=== PATIENT | female | born 1945 | race Caucasian/White ===

== ENCOUNTER 2020-10-04 16:00 | Inpatient (IN) | payer MEDICARE ==
[2020-10-04] MEDS ORDERED: IPRATROPIUM/ALBUTEROL 0.5-2.5 MG/3 ML AMPUL NEB ONE (16:35)
[2020-10-04] MEDS ORDERED: METHYLPREDNISOLONE INJ 125 MG/2 ML SDV IV ONE (16:35)
[2020-10-04] MEDS ORDERED: DIPH/PERTUSS(ACELL)/TETANUS VAC/PF 0.5 ML SYR (>=10YO) IM ONE (16:35)
--- NOTE | 2020-10-04 16:37 | ER Document Report ---
ED Medical Screen (RME) - General Chief Complaint: Chest Pain Stated Complaint: FALL/LACERATION TO HEAD Time Seen by Provider: 10/04/20 16:29 Primary Care Provider: SAM RUVALCABA [Primary Care Provider] - Follow up as needed Notes: HPI: History is obtained from the patient and the daughter. A 74-year-old female with COPD history brought for 2 reasons today. Patient has been having worsened shortness of breath that she feels is her COPD along with chest pain over the last 2 weeks. Daughter indicates patient has had cough and cold symptoms for 3 to 4 weeks. Patient states she had a negative Covid test a week ago. Patient follows at [facility]. Patient states that she had a fall last night and another fall today. Patient states she was try to get back to her bed because she did not feel well and must have passed out. Patient does not recall her last tetanus shot. Patient believes she fell and hit the back of her head. She complains of pain to the lower thoracic spine as well as the neck and head PHYSICAL EXAMINATION: Hematoma with abrasion to the right occipital region of the scalp. Lung sounds are decreased bilaterally. Regular rate and rhythm. Patient does become dyspneic with speaking. I have greeted and performed a rapid initial assessment of this patient. A comprehensive ED assessment and evaluation of the patient, analysis of test results and completion of medical decision making process will be conducted by an additional ED providers. Please note that clinical decision making for this patient was made during the 2019 pandemic of novel coronavirus which caused a significant strain on the healthcare system including at this particular facility. Criteria for admission discharge and level of care decisions as well as treatment decisions have necessarily changed - Related Data Allergies/Adverse Reactions: No Known Allergies Allergy (Unverified 10/04/20 16:27) Home Medications: patient states she does not know the names of the medications Past Medical History - Social History Chew tobacco use (# tins/day): No Frequency of alcohol use: None Drug Abuse: None Physical Exam - Vital signs Vitals: Temp Pulse Resp BP Pulse Ox 97.8 F 73 18 145/67 H 98 10/04/20 16:11 10/04/20 16:11 10/04/20 16:11 10/04/20 16:11 10/04/20 16:11 Course - Vital Signs Vital signs: Temp Pulse Resp BP Pulse Ox 97.8 F 73 18 145/67 H 98 10/04/20 16:11 10/04/20 16:11 10/04/20 16:11 10/04/20 16:11 10/04/20 16:11 Doctor's Discharge - Discharge Referrals: LOCALMD,NO [Primary Care Provider] - Follow up as needed
--- NOTE | 2020-10-04 17:25 | RADIOLOGY REPORT (SQ) ---
EXAM DESCRIPTION: CT CERVICAL SPINE WITHOUT IMAGES COMPLETED DATE/TIME: 10/04/2020 5:08 pm REASON FOR STUDY: fall COMPARISON: None. TECHNIQUE: Axial images acquired through the cervical spine without intravenous contrast. Images re viewed with lung, soft tissue and bone windows. Reconstructed coronal and sagittal MPR images review ed. Images stored on PACS. All CT scanners at this facility use dose modulation, iterative reconstruction, and/or weight based d osing when appropriate to reduce radiation dose to as low as reasonably achievable (ALARA). [facility]: Dose Right [facility]: CareDose [facility]: Dose Right [facility]: Teradose 4D [facility]: Smart [employer] RADIATION DOSE: CT Rad equipment meets quality standard of care and radiation dose reduction techniq ues were employed. CTDIvol: 10.8 mGy. DLP: 171 mGy-cm. mGy. LIMITATIONS: None. FINDINGS: ALIGNMENT: Grade 1 anterolisthesis of C4 relative to C5 on the basis of degenerative peoples e. Reversal of the normal lordotic curvature centered at the C6 level. MINERALIZATION: Osteopenia. VERTEBRAL BODIES: No fractures or dislocation. DISCS: Multilevel disc space narrowing with osteophytes. FACETS, LATERAL MASSES, POSTERIOR ELEMENTS: Facet arthropathy. No fractures. No dislocation. No ac patrick findings. HARDWARE: None in the spine. VISUALIZED RIBS: No fractures. LUNG APICES AND SOFT TISSUES: Biapical pleural/ parenchymal scarring. No pneumothorax. OTHER: No other significant finding. IMPRESSION: Grade 1 anterolisthesis at the C4/5 level on the basis of disc degeneration and marked f acet arthropathy. No evidence of acute osseous injury. Background of multilevel spondylotic changes . TECHNICAL DOCUMENTATION: JOB ID: [id number] Quality ID # [id number]: Final reports with documentation of one or more dose reduction techniques (e.g., Au tomated exposure control, adjustment of the mA and/or kV according to patient size, use of iterative reconstruction technique) 2010 [employer]- All Rights Reserved Reading location - IP/workstation name: [email or web address]
--- NOTE | 2020-10-04 17:26 | RADIOLOGY REPORT (SQ) ---
EXAM DESCRIPTION: CT HEAD WITHOUT IMAGES COMPLETED DATE/TIME: 10/04/2020 2:08 pm REASON FOR STUDY: fall COMPARISON: None. TECHNIQUE: Axial images acquired through the brain without intravenous contrast. Images reviewed wi th bone, brain and subdural windows. Additional sagittal and coronal reconstructions were generated. Images stored on PACS. All CT scanners at this facility use dose modulation, iterative reconstruction, and/or weight based d osing when appropriate to reduce radiation dose to as low as reasonably achievable (ALARA). [facility]: Dose Right [facility]: CareDose [facility]: Dose Right [facility]: Teradose 4D [facility]: Smart [employer] RADIATION DOSE: CT Rad equipment meets quality standard of care and radiation dose reduction techniq ues were employed. CTDIvol: 53.2 mGy. DLP: 911 mGy-cm.mGy. LIMITATIONS: None. FINDINGS: VENTRICLES: Within normal limits. CEREBRUM: No masses. No hemorrhage. No midline shift. Areas of low density in the white matter mos t likely due to chronic micro-vascular ischemic change. No evidence for acute infarction. CEREBELLUM: No masses. No hemorrhage. No alteration of density. No evidence for acute infarction. EXTRAAXIAL SPACES: Age-related involutional change. No fluid collections. No masses. ORBITS AND GLOBE: No intra- or extraconal masses. Normal contour of globe without masses. CALVARIUM: No fracture. PARANASAL SINUSES: Opacification of the left maxillary sinus. Mild mucosal thickening right maxillar y sinus. SOFT TISSUES: No mass or hematoma. OTHER: No other significant finding. IMPRESSION: 1. No acute intracranial abnormality identified on noncontrast CT. Background chronic small vessel ischemic changes could degrade evaluation for changes of acute ischemia. If there is pe rsistent concern for acute ischemia, MRI would be recommended. 2. Chronic appearing opacification of the left maxillary sinus. EVIDENCE OF ACUTE STROKE: NO. TECHNICAL DOCUMENTATION: JOB ID: [id number] Quality ID # [id number]: Final reports with documentation of one or more dose reduction techniques (e.g., Au tomated exposure control, adjustment of the mA and/or kV according to patient size, use of iterative reconstruction technique) 2010 [employer]- All Rights Reserved Reading location - IP/workstation name: [email or web address]
--- NOTE | 2020-10-04 17:27 | RADIOLOGY REPORT (SQ) ---
EXAM DESCRIPTION: CHEST SINGLE VIEW IMAGES COMPLETED DATE/TIME: 10/04/2020 2:12 pm REASON FOR STUDY: sob COMPARISON: None. EXAM PARAMETERS: NUMBER OF VIEWS: One view. TECHNIQUE: Single frontal radiographic view of the chest acquired. RADIATION DOSE: NA LIMITATIONS: None. FINDINGS: LUNGS AND PLEURA: Lungs are hyperinflated. No consolidation, pleural effusion, or pneumot horax. MEDIASTINUM AND HILAR STRUCTURES: No masses. Contour normal. HEART AND VASCULAR STRUCTURES: Heart normal in size. Normal vasculature. BONES: No acute findings. HARDWARE: None in the chest. OTHER: No other significant finding. IMPRESSION: Findings suggestive of COPD. No acute radiographic abnormality. TECHNICAL DOCUMENTATION: JOB ID: [id number] 2010 [employer]- All Rights Reserved Reading location - IP/workstation name: [email or web address]
[2020-10-04 17:52] LABS: ABSOLUTE LYMPHOCYTES (AUTO) 1.1 10^3/uL (0.5-4.7); ABSOLUTE MONOCYTES (AUTO) 0.7 10^3/uL (0.1-1.4); BASOPHILS % (AUTO) 0.4 % (0-2); EOSINOPHILS % (AUTO) 0.3 % (0-6); HEMATOCRIT 35.9 % (36.0-47.0); HEMOGLOBIN 12.9 g/dL (12.0-15.5); LYMPHOCYTES % (AUTO) 11.4 % (13-45); MEAN CORPUSCULAR HEMOGLOBIN 31.1 pg (27.0-33.4); MEAN CORPUSCULAR VOLUME 86 fl (80-97); MONOCYTES % (AUTO) 6.7 % (3-13); PLATELET COUNT 310 10^3/uL (150-450); RED BLOOD COUNT 4.16 10^6/uL (3.72-5.28); RED CELL DISTRIBUTION WIDTH 13.4 % (11.5-14.0); SEGMENTED NEUTROPHILS % (AUTO) 81.2 % (42-78); TOTAL CELLS COUNTED % (AUTO) 100 %; WHITE BLOOD COUNT 9.8 10^3/uL (4.0-10.5)
[2020-10-04 18:03] LABS: ALBUMIN 4.6 g/dL (3.5-5.0); ALKALINE PHOSPHATASE 76 U/L (38-126); ASPARTATE AMINO TRANSFERASE 39 U/L (14-36); BILIRUBIN,DIRECT 0.1 mg/dL (0.0-0.4); BILIRUBIN,TOTAL 0.9 mg/dL (0.2-1.3); BLOOD UREA NITROGEN 15 mg/dL (7-20); CALCIUM 9.5 mg/dL (8.4-10.2); CARBON DIOXIDE 25 mmol/L (22-30); CHLORIDE 83 mmol/L (98-107); GLUCOSE 93 mg/dL (75-110); POTASSIUM 4.2 mmol/L (3.6-5.0); TOTAL PROTEIN 7.6 g/dL (6.3-8.2)
[2020-10-04 18:05] LABS: ANION GAP 10 (5-19)
[2020-10-04 18:11] LABS: NT PRO BNP 139 pg/mL (<125)
[2020-10-04 18:15] LABS: TROPONIN I < 0.012 ng/mL
[2020-10-04] MEDS ORDERED: NORMAL SALINE 1000 ML 1,000 ML IV ONE (19:25)
[2020-10-04] MEDS ORDERED: ONDANSETRON HCL INJ/PF 4 MG/2 ML SDV IV ONE (19:33)
[2020-10-04] MEDS ORDERED: MORPHINE SULFATE 10 MG/ML INJ IV ONE (19:33)
--- NOTE | 2020-10-04 19:38 | ER Document Report ---
ED General - General Chief Complaint: Chest Pain Stated Complaint: FALL/LACERATION TO HEAD Time Seen by Provider: 10/04/20 16:29 - HPI Notes: Patient is a 74-year-old female presents emergency department for evaluation of multiple issues. She states that she has felt some shortness of breath and just has felt weak over the last 2 weeks. She has felt dizzy. She has had syncopal episodes x2, the last one being this morning. She states she was only out for a few seconds. She did hit her head. She is unsure when her last tetanus shot was. She has had some minor pain in her chest that she describes as a soreness, also states she is had some soreness in her back. No fevers. She had a minimal cough today. She did have a negative Covid test recently. She denies any difficulty seeing, speaking, swallowing. She is moving her arms and legs without difficulty. She has had some nausea, but denies vomiting. Normal bowel movements. She states like she is not urinating as much as normal. - Related Data Allergies/Adverse Reactions: No Known Allergies Allergy (Unverified 10/04/20 16:27) Home Medications: Statin, lisinopril/HCTZ Past Medical History - General Information source: Patient - Social History Smoking Status: Former Smoker Chew tobacco use (# tins/day): No Frequency of alcohol use: None Drug Abuse: None Family History: Reviewed & Not Pertinent - Past Medical History Cardiac Medical History: Reports: Hx Hypercholesterolemia, Hx Hypertension Pulmonary Medical History: Reports: Hx COPD EENT Medical History: Reports: Eyes - History of cataracts Past Surgical History: Reports: Hx Cholecystectomy, Hx Tubal Ligation, Other - Cataract surgery Review of Systems - Review of Systems Constitutional: See HPI EENT: No symptoms reported Cardiovascular: See HPI Respiratory: See HPI Gastrointestinal: See HPI Genitourinary: See HPI Musculoskeletal: See HPI Skin: No symptoms reported Neurological/Psychological: See HPI Physical Exam - Vital signs Vitals: Temp Pulse Resp BP Pulse Ox 97.8 F 73 18 145/67 H 98 10/04/20 16:11 10/04/20 16:11 10/04/20 16:11 10/04/20 16:11 10/04/20 16:11 - Notes Notes: This is a 74-year-old female who appears her stated age, no acute distress. She does not appear frankly dyspneic, just weak. It seems to take all of her effort to be able to speak to me. Vital signs reviewed, please refer to chart. Head is normocephalic. Left occipital hematoma noted with a small abrasion, no signi ficant laceration. Patient also has ecchymosis over the lateral aspect of the left brow. No orbital step-off. Pupils equal round, reactive to light. Neck is supple without meningismus. Heart is regular rate and rhythm. Lungs are clear to auscultation bilaterally. Abdomen is soft, nontender, normoactive bowel sounds throughout. Extremities without cyanosis, clubbing. Posterior calves are nontender. Peripheral pulses are equal. Skin is warm and dry. Patient is awake, alert, oriented x3, but she is slow to answer questions. Cranial nerves II - XII are grossly intact without focal neurological deficits. Strength is plus 5 out of 5 bilateral upper and lower extremities. Sensation is intact. Reflexes symmetrical. Intact [id number], rapid alternating movements, [id number]. Course - Re-evaluation Re-evalutation: 10/04/20 19:40 Patient presents emergency department for evaluation. She laboratory vesic ation's, imaging, EKG is ordered through triage. She was also given treatment for a COPD exacerbation as a possible etiology of her shortness of breath. The patient has absolutely no wheezing here and she is oxygenating well. Her findings include a significantly low sodium. I do not have any old studies to compare this to, but she has no history of hyponatremia to her knowledge. Certainly to this level it needs addressed on the inpatient basis. I suspect that is the etiology of her symptoms. I am still awaiting a urinalysis. She is currently stable, we will continue to monitor. 10/04/20 21:[address] Sosa, operating room registered nurse for the hospital this evening. He asks that I run this by the ICU provider, given the significance of the hyponatremia. I did call the ICU, they do have a critical patient at this time. Patient is currently stable. - Vital Signs Vital signs: Temp Pulse Resp BP Pulse Ox 97.8 F 73 17 142/61 H 100 10/04/20 16:11 10/04/20 16:11 10/04/20 21:01 10/04/20 21:01 10/04/20 21:01 - Laboratory Results Result Diagrams: 10/04/20 17:36 10/04/20 17:36 Laboratory Results Interpreted: 10/04/20 10/04/20 10/04/20 17:36 17:36 17:36 Hct 35.9 L Lymph % (Auto) 11.4 L Seg Neutrophils % 81.2 H Sodium 117.8 L* Chloride 83 L Est GFR ( Amer) 56 L Est GFR (MDRD) Non-Af 46 L AST 39 H NT-Pro-B Natriuret Pep 139 H Urine Ketones 10/04/20 20:26 Hct Lymph % (Auto) Seg Neutrophils % Sodium Chloride Est GFR ( Amer) Est GFR (MDRD) Non-Af AST NT-Pro-B Natriuret Pep Urine Ketones 20 H Critical Laboratory Results Reviewed: Yes Attending or Supervising Physician who Reviewed Labs: GINI LANCE - Radiology Results Radiology Results Interpreted: 10/04/20 19:[address] 10/04/20 16:34 IMPRESSION: Grade 1 anterolisthesis at the C4/5 level on the basis of disc degeneration and marked facet arthropathy. No evidence of acute osseous injury. Background of multilevel spondylotic changes. Head CT 10/04/20 16:34 IMPRESSION: 1. No acute intracranial abnormality identified on noncontrast CT. Background chronic small vessel ischemic changes could degrade evaluation for changes of acute ischemia. If there is persistent concern for acute ischemia, MRI would be recommended. 2. Chronic appearing opacification of the left maxillary sinus. EVIDENCE OF ACUTE STROKE: NO. Chest X-Ray 10/04/20 16:35 IMPRESSION: Findings suggestive of COPD. No acute radiographic abnormality. Critical Radiology Results Reviewed: No Critical Results Discharge - Discharge Clinical Impression: Hyponatremia, Syncope and collapse Head injury without fracture of skull Qualifiers: Encounter type: initial encounter Qualified Code(s): S09.90XA - Unspecified injury of head, initial encounter Condition: Stable Disposition: ADMITTED INPATIENT [facility]
[2020-10-04 20:46] LABS: APPEARANCE,URINE CLEAR; BILIRUBIN,URINE NEGATIVE (NEGATIVE); COLOR,URINE STRAW; GLUCOSE, URINE NEGATIVE (NEGATIVE); KETONES,URINE 20 mg/dL (NEGATIVE); LEUKOCYTE ESTERASE,URINE NEGATIVE (NEGATIVE); NITRITE,URINE NEGATIVE (NEGATIVE); PROTEIN,URINE NEGATIVE (NEGATIVE); URINE SPECIFIC GRAVITY 1.008; UROBILINOGEN,URINE NEGATIVE mg/dL (<2.0)
--- NOTE | 2020-10-04 21:28 | Progress Note ---
Provider Note Provider Note: Called by Dr. Lozano to evalaute patient for possible ICU admission. I evalauted this patient in the ED. She states she has a past medical history to include COPD former smoker quit approx 15 years ago. She states she is normally healthy but has been having problems since August with feelings of SOB intermittently and chest pain which she contributes to a fall she had. The patient did have another fall, however, her CT scan of head and neck are negative. The patients sodium is noted to be 117, however; she is alert and oriented at this time and I do not feel ICU admission is required at this time.
[2020-10-04] MEDS ORDERED: IPRATROPIUM/ALBUTEROL 0.5-2.5 MG/3 ML AMPUL NEB PRN (22:30)
[2020-10-04] MEDS ORDERED: ACETAMINOPHEN 325 MG TABLET PO PRN (22:30)
[2020-10-04] MEDS ORDERED: RINGERS SOLUTION,LACTATED 1,000 ML IV PRN (22:30)
[2020-10-04] MEDS ORDERED: ONDANSETRON HCL INJ/PF 4 MG/2 ML SDV IV PRN (22:49)
--- NOTE | 2020-10-04 22:54 | PDOC H&P ---
History of Present Illness Admission Date/PCP: JOSE BURNHAM PA-C Patient complains of: Fall, chest pain History of Present Illness: BRAIN SCHULER is a 74 year old female with a history of hypertension and COPD who presents to the ED after she sustained a fall 1 day prior to presentation. She states that she fell down while she was trying to go to the b athroom. During the incident she hit her head and she thinks that she might have blacked out for few minutes but does not remember exactly for how long. Patient had similar episodes about 2 weeks back. He denied any shortness of breath, dizziness chest pain or palpitation prior to or during the fall. Currently he reports constant nonspecific bilateral chest pain with no clear aggravating or relieving factor. Patient also reports that this she has been feeling generally weak for the past 2 weeks and has generalized body pain fatigue lower back and multiple joints. Patient is alert and oriented x3 but at times appears to be confused. He denies any nausea, vomiting, fever, chills, cough, diarrhea, abnormal body movement. She reports some numbness on the left lower extremity but denies any weakness of extremities. At the ED patient was hemodynamically stable labs showed hyponatremia of [address] without contrast was negative, cervical spine CT showed grade 1 anterolisthesis at C4/C5 level. X-ray showed hyperinflated lungs consistent with COPD but no acute changes were noted. Past Medical History Cardiac Medical History: Reports: Hyperlipidema, Hypertension Pulmonary Medical History: Reports: Chronic Obstructive Pulmonary Disease (COPD) EENT Medical History: Reports: Eyes - History of cataracts Past Surgical History Past Surgical History: Reports: Cholecystectomy, Tubal Ligation, Other - Cataract surgery Social History Information Source: Patient Lives with: Alone Smoking Status: Former Smoker Electronic Cigarette use?: No Hx Recreational Drug Use: No Drugs: None - Advance Directive Resuscitation Status: Full Code Family History Family History: Reviewed & Not Pertinent Parental Family History Reviewed: Yes Children Family History Reviewed: Yes Sibling(s) Family History Reviewed.: Yes Medication/Allergy Allergies/Adverse Reactions: No Known Allergies Allergy (Unverified 10/04/20 16:27) Review of Systems Constitutional: PRESENT: as per HPI Eyes: ABSENT: visual disturbances Ears: ABSENT: hearing changes Nose, Mouth, and Throat: ABSENT: headache(s), mouth pain, sore throat Cardiovascular: PRESENT: chest pain. ABSENT: dyspnea on exertion, edema, orthropnea, palpitations Respiratory: ABSENT: cough, hemoptysis Gastrointestinal: ABSENT: abdominal pain, constipation, diarrhea, hematemesis, hematochezia, nausea, vomiting Genitourinary: ABSENT: dysuria, hematuria Musculoskeletal: PRESENT: back pain, muscle weakness. ABSENT: joint swelling Integumentary: ABSENT: rash, wounds Neurological: PRESENT: as per HPI, confusion, syncope. ABSENT: focal weakness Psychiatric: ABSENT: anxiety, depression, homidical ideation, suicidal ideation Endocrine: ABSENT: cold intolerance, heat intolerance, polydipsia, polyuria Hematologic/Lymphatic: ABSENT: easy bleeding, easy bruising Physical Exam Vital Signs: Temp Pulse Resp BP Pulse Ox 97.8 F 73 17 142/61 H 100 10/04/20 16:11 10/04/20 16:11 10/04/20 21:01 10/04/20 21:01 10/04/20 21:01 Intake & Output 10/03/20 10/04/20 10/05/20 06:59 06:59 06:59 Intake Total 1000 Balance 1000 Weight 57.6 kg Additional comments: GENERAL APPEARANCE: Alert and oriented x3 appears to be confused at times, in no acute distress HEENT: Has a 3 cm linear superficial laceration around occipital area. No scleral icterus. Dry oral mucosa NECK: Supple. No lymphadenopathy or tenderness. No carotid bruit. No JVD CHEST: Symmetric. Nontender to palpation. LUNGS: Clear with good air entry bilaterally. No wheezing or crackles HEART: Regular rate and rhythm with normal S1 and S2. No murmurs, gallops, or rubs. ABDOMEN: soft, active bowel sounds, no direct or rebound tenderness. No organomegaly detected. No CVA tenderness EXTREMITIES: No cyanosis, clubbing, or edema. MUSCULOSKELETAL: No deformity, atrophy or swelling noted. No point tenderness was appreciated on cervical, thoracic or lumbar vertebra areas SKIN: Warm, dry, and well perfused. No lesions or rashes are noted. NEUROLOGIC: No focal sensory or motor deficits are noted. Results Laboratory Results: 10/04/20 17:36 10/04/20 17:36 10/04/20 10/04/20 10/04/20 17:36 17:36 20:26 WBC 9.8 RBC 4.16 Hgb 12.9 Hct 35.9 L MCV 86 MCH 31.1 MCHC 36.0 RDW 13.4 Plt Count 310 Seg Neutrophils % 81.2 H Sodium 117.8 L* Potassium 4.2 Chloride 83 L Carbon Dioxide 25 Anion Gap 10 BUN 15 Creatinine 1.15 Est GFR ( Amer) 56 L Glucose 93 Calcium 9.5 Total Bilirubin 0.9 AST 39 H Alkaline Phosphatase 76 Total Protein 7.6 Albumin 4.6 Urine Color STRAW Urine Appearance CLEAR Urine pH 7.0 Ur Specific [place] 1.008 Urine Protein NEGATIVE Urine Glucose (UA) NEGATIVE Urine Ketones 20 H Urine Blood NEGATIVE Urine Nitrite NEGATIVE Ur Leukocyte Esterase NEGATIVE Urine WBC (Auto) 1 Urine RBC (Auto) 2 10/04/20 17:36 Troponin I < 0.012 NT-Pro-B Natriuret Pep 139 H Impressions: Cervical Spine CT 10/04/20 16:34 IMPRESSION: Grade 1 anterolisthesis at the C4/5 level on the basis of disc degeneration and marked facet arthropathy. No evidence of acute osseous injury. Background of multilevel spondylotic changes. Head CT 10/04/20 16:34 IMPRESSION: 1. No acute intracranial abnormality identified on noncontrast CT. Background chronic small vessel ischemic changes could degrade evaluation for changes of acute ischemia. If there is persistent concern for acute ischemia, MRI would be recommended. 2. Chronic appearing opacification of the left maxillary sinus. EVIDENCE OF ACUTE STROKE: NO. Chest X-Ray 10/04/20 16:35 IMPRESSION: Findings suggestive of COPD. No acute radiographic abnormality. Assessment and Plan - Diagnosis (1) Hyponatremia Is this a current diagnosis for this admission?: Yes Plan: Likely hypovolemic hyponatremia from poor oral intake Possibly contributing to spells of confusion Serum sodium level was 117.8 Placed patient on fall precaution, seizure precaution Obtain serum, urine osmolality and urine sodium Patient was given a liter of normal saline at the ED Continue cautious hydration with LR at 100 mL's per hour With a target of correction of sodium levels by 6 mEq in the first 24 hours Continue monitoring serum electrolytes (2) Atypical chest pain Is this a current diagnosis for this admission?: Yes Plan: Currently patient reports nonexertional, constant chest pain Initial cardiac enzyme was negative EKG showed no ST-T wave changes consistent with ischemia Continue trending cardiac enzymes Continue monitoring on telemetry Placed her on aspirin and statin (3) Head injury without fracture of skull Qualifiers: Encounter type: initial encounter Qualified Code(s): S09.90XA - Unspecified injury of head, initial encounter Is this a current diagnosis for this admission?: Yes Plan: Patient sustained head injury during an episode of fall Physical exam was significant for a 3 cm linear laceration around the occipital area CT head without contrast showed no skull fracture or acute intracranial findings Continue wound care, fall precaution (4) Syncope and collapse Is this a current diagnosis for this admission?: Yes Plan: Patient presents after an episode of syncope with fall and head injury CT head without contrast was negative for skull fracture or any acute intracranial abnormality Likely orthostatic due to volume depletion Continue IV hydration Continue monitoring on telemetry consider echocardiogram On fall precaution (5) Volume depletion Is this a current diagnosis for this admission?: Yes Plan: Likely due to poor oral intake Continue gentle IV hydration to avoid overcorrection of hyponatremia Closely monitor vital signs (6) COPD (chronic obstructive pulmonary disease) Is this a current diagnosis for this admission?: Yes Plan: Currently not in acute exacerbation Continue present treatment with DuoNeb's every 4 hourly as needed (7) Hypertension Is this a current diagnosis for this admission?: Yes Plan: Blood pressure within acceptable range Hold off on antihypertensives medication for now due to volume depletion - Time Time Spent with patient: 35 or more minutes Total Critical Time (Minutes): 45 Medications reviewed and adjusted accordingly: Yes Anticipated Discharge Disposition: Home, Self Care Anticipated Discharge Timeframe: within 72 hours - Inpatient Certification Based on my medical assessment, after consideration of the patient's comorbidities, presenting symptoms, or acuity I expect that the services needed warrant INPATIENT care.: Yes I certify that my determination is in accordance with my understanding of Medicare's requirements for reasonable and necessary INPATIENT services [42 CFR 412.3e].: Yes Medical Necessity: Significant Comorbidiites Make Outpatient Treatment Too Risky, Need Close Monitoring Due to Risk of Patient Decompensation, Need For IV Fluids, Need For Continuous Telemetry Monitoring, Risk of Complication if Not Cared For in Hospital Post Hospital Care: D/C or Transfer Summary
[2020-10-04] MEDS ORDERED: FAMOTIDINE 20 MG TABLET PO ONE (23:00)
[2020-10-04] MEDS: OXYCODONE-ACETAMINOPHEN 5-325 MG TABLET PO PRN (23:35)
[2020-10-05] MEDS: OXYCODONE-ACETAMINOPHEN 5-325 MG TABLET PO PRN (06:10)
[2020-10-05 06:42] LABS: ABSOLUTE LYMPHOCYTES (AUTO) 0.6 10^3/uL (0.5-4.7); ABSOLUTE MONOCYTES (AUTO) 0.4 10^3/uL (0.1-1.4); ABSOLUTE NEUT (AUTO) 4.6 10^3/uL (1.7-8.2); BASOPHILS % (AUTO) 0.3 % (0-2); EOSINOPHILS % (AUTO) 0.1 % (0-6); HEMATOCRIT 29.9 % (36.0-47.0); HEMOGLOBIN 10.9 g/dL (12.0-15.5); LYMPHOCYTES % (AUTO) 10.8 % (13-45); MEAN CORPUSCULAR HEMOGLOBIN 31.7 pg (27.0-33.4); MEAN CORPUSCULAR HGB CONC 36.4 g/dL (32.0-36.0); MEAN CORPUSCULAR VOLUME 87 fl (80-97); MONOCYTES % (AUTO) 6.3 % (3-13); PLATELET COUNT 270 10^3/uL (150-450); RED BLOOD COUNT 3.45 10^6/uL (3.72-5.28); RED CELL DISTRIBUTION WIDTH 13.2 % (11.5-14.0); SEGMENTED NEUTROPHILS % (AUTO) 82.5 % (42-78); TOTAL CELLS COUNTED % (AUTO) 100 %; WHITE BLOOD COUNT 5.6 10^3/uL (4.0-10.5)
[2020-10-05 07:14] LABS: ANION GAP 10 (5-19); BLOOD UREA NITROGEN 11 mg/dL (7-20); CALCIUM 8.7 mg/dL (8.4-10.2); CARBON DIOXIDE 22 mmol/L (22-30); CHLORIDE 93 mmol/L (98-107); GLUCOSE 139 mg/dL (75-110); POTASSIUM 4.3 mmol/L (3.6-5.0)
[2020-10-05] MEDS ORDERED: RINGERS SOLUTION,LACTATED 1,000 ML IV PRN (07:29)
--- NOTE | 2020-10-05 12:07 | PDOC PROGRESS REPORT ---
Subjective Date:: 10/05/20 Subjective:: As per admitting physician's note BRAIN SCHULER is a 74 year old female with a history of hypertension and COPD who presents to the ED after she sustained a fall 1 day prior to presentation. She states that she fell down while she was trying to go to the bathroom. During the incident she hit her head and she thinks that she might have blacked out for few minutes but does not remember exactly for how long. Patient had similar episodes about 2 weeks back. He denied any shortness of breath, dizziness chest pain or palpitation prior to or during the fall. Currently he reports constant nonspecific bilateral chest pain with no clear aggravating or relieving factor. Patient also reports that this she has been feeling generally weak for the past 2 weeks and has generalized body pain fatigue lower back and multiple joints. Patient is alert and oriented x3 but at times appears to be confused. He denies any nausea, vomiting, fever, chills, cough, diarrhea, abnormal body movement. She reports some numbness on the left lower extremity but denies any weakness of extremities. At the ED patient was hemodynamically stable labs showed hyponatremia of [address] w ithout contrast was negative, cervical spine CT showed grade 1 anterolisthesis at C4/C5 level. X-ray showed hyperinflated lungs consistent with COPD but no acute changes were noted. 10/05/2020. Saw patient this morning, comfortably resting in bed, in no apparent distress, planing of neck pain, she is ambulatory and p.o. tolerant, denies any headache, numbness, tingling, focal weakness, chest pain, nausea, vomiting, diarrhea, constipation or any urinary symptoms. Patient denies taking any SSRIs but he states that she drinks excessive amount of water daily. Reason For Visit: SEVERE HYPONATREMIA,ACUTE METABOLIC ENCEPHALOPATHY Physical Exam Vital Signs: Temp Pulse Resp BP Pulse Ox 97.6 F 87 14 101/44 L 100 10/05/20 07:33 10/05/20 09:04 10/05/20 09:04 10/05/20 07:33 10/05/20 09:04 Intake & Output 10/04/20 10/05/20 10/06/20 06:59 06:59 06:59 Intake Total 1000 Balance 1000 Weight 59.6 kg General appearance: PRESENT: no acute distress, well-developed, well-nourished Head exam: PRESENT: atraumatic, normocephalic Respiratory exam: PRESENT: clear to auscultation katey. ABSENT: rales, rhonchi, wheezes Cardiovascular exam: PRESENT: RRR. ABSENT: diastolic murmur, rubs, systolic murmur GI/Abdominal exam: PRESENT: normal bowel sounds, soft. ABSENT: distended, guarding, mass, organolmegaly, rebound, tenderness Extremities exam: PRESENT: full ROM. ABSENT: calf tenderness, clubbing, pedal edema Neurological exam: PRESENT: alert, awake, oriented to person, oriented to place, oriented to time, oriented to situation, CN II-XII grossly intact. ABSENT: motor sensory deficit Results Laboratory Results: 10/05/20 05:45 10/05/20 05:45 10/04/20 10/04/20 10/04/20 17:36 17:36 17:36 WBC 9.8 RBC 4.16 Hgb 12.9 Hct 35.9 L MCV 86 MCH 31.1 MCHC 36.0 RDW 13.4 Plt Count 310 Seg Neutrophils % 81.2 H Sodium 117.8 L* Potassium 4.2 Chloride 83 L Carbon Dioxide 25 Anion Gap 10 BUN 15 Creatinine 1.15 Est GFR ( Amer) 56 L Glucose 93 Serum Osmolality 249 L Calcium 9.5 Magnesium Total Bilirubin 0.9 AST 39 H Alkaline Phosphatase 76 Total Protein 7.6 Albumin 4.6 TSH Urine Color Urine Appearance Urine pH Ur Specific [place] Urine Protein Urine Glucose (UA) Urine Ketones Urine Blood Urine Nitrite Ur Leukocyte Esterase Urine WBC (Auto) Urine RBC (Auto) Urine Osmolality 10/04/20 10/04/20 10/05/20 20:26 20:26 05:45 WBC 5.6 RBC 3.45 L Hgb 10.9 L Hct 29.9 L MCV 87 MCH 31.7 MCHC 36.4 H RDW 13.2 Plt Count 270 Seg Neutrophils % 82.5 H Sodium Potassium Chloride Carbon Dioxide Anion Gap BUN Creatinine Est GFR ( Amer) Glucose Serum Osmolality Calcium Magnesium Total Bilirubin AST Alkaline Phosphatase Total Protein Albumin TSH Urine Color STRAW Urine Appearance CLEAR Urine pH 7.0 Ur Specific [place] 1.008 Urine Protein NEGATIVE Urine Glucose (UA) NEGATIVE Urine Ketones 20 H Urine Blood NEGATIVE Urine Nitrite NEGATIVE Ur Leukocyte Esterase NEGATIVE Urine WBC (Auto) 1 Urine RBC (Auto) 2 Urine Osmolality 235 L 10/05/20 10/05/20 05:45 05:45 WBC RBC Hgb Hct MCV MCH MCHC RDW Plt Count Seg Neutrophils % Sodium 124.7 L Potassium 4.3 Chloride 93 L Carbon Dioxide 22 Anion Gap 10 BUN 11 Creatinine 0.86 Est GFR ( Amer) > 60 Glucose 139 H Serum Osmolality Calcium 8.7 Magnesium 1.8 Total Bilirubin AST Alkaline Phosphatase Total Protein Albumin TSH 0.32 L Urine Color Urine Appearance Urine pH Ur Specific [place] Urine Protein Urine Glucose (UA) Urine Ketones Urine Blood Urine Nitrite Ur Leukocyte Esterase Urine WBC (Auto) Urine RBC (Auto) Urine Osmolality 10/04/20 10/04/20 10/05/20 17:36 23:32 05:45 Troponin I < 0.012 < 0.012 < 0.012 NT-Pro-B Natriuret Pep 139 H Impressions: Cervical Spine CT 10/04/20 16:34 IMPRESSION: Grade 1 anterolisthesis at the C4/5 level on the basis of disc degeneration and marked facet arthropathy. No evidence of acute osseous injury. Background of multilevel spondylotic changes. Head CT 10/04/20 16:34 IMPRESSION: 1. No acute intracranial abnormality identified on noncontrast CT. Background chronic small vessel ischemic changes could degrade evaluation for changes of acute ischemia. If there is persistent concern for acute ischemia, MRI would be recommended. 2. Chronic appearing opacification of the left maxillary sinus. EVIDENCE OF ACUTE STROKE: NO. Chest X-Ray 10/04/20 16:35 IMPRESSION: Findings suggestive of COPD. No acute radiographic abnormality. Assessment and Plan - Diagnosis (1) Hyponatremia Is this a current diagnosis for this admission?: Yes Plan: Improving. 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 Patient reports drinking excessive amount of water daily. Normal urine sodium, low serum osmolarity and low urine osmolarity. Denies any history of malignancy, denies any history of tobacco abuse, not taking any SSRIs or antiepileptics. Presented with sodium of 117. Currently sodium is 124. DC IV fluids. Fluid restriction. BMP every 8 hours. Implement seizure and fall precautions. (2) Syncope and collapse Is this a current diagnosis for this admission?: Yes Plan: Patient presents after an episode of syncope with fall and head injury CT head without contrast was negative for skull fracture or any acute intracranial abnormality Likely orthostatic due to volume depletion Continue IV hydration Continue monitoring on telemetry consider echocardiogram On fall precaution (3) COPD (chronic obstructive pulmonary disease) Is this a current diagnosis for this admission?: Yes Plan: Currently not in acute exacerbation Continue present treatment with DuoNeb's every 4 hourly as needed (4) Head injury without fracture of skull Qualifiers: Encounter type: initial encounter Qualified Code(s): S09.90XA - Unspecified injury of head, initial encounter Is this a current diagnosis for this admission?: Yes Plan: Patient sustained head injury during an episode of fall Physical exam was significant for a 3 cm linear laceration around the occipital area CT head without contrast showed no skull fracture or acute intracranial findings Continue wound care, fall precaution (5) Hypertension Is this a current diagnosis for this admission?: Yes Plan: Euvolemic. Normotensive. Home medications are lisinopril and HCTZ. DC HCTZ due to electrolyte abnormalities. Resume lisinopril adjust dosage as needed. Outpatient PCP follow-up. (6) Atypical chest pain Is this a current diagnosis for this admission?: Yes Plan: Resolved. Denies any history of CAD. Likely musculoskeletal, does not appear to be cardiac. Troponins negative x3. EKG no acute changes. Continue monitoring on telemetry, aspirin and statins optimize BP. - Time Time Spent with patient: 35 or more minutes Anticipated Discharge Disposition: Home, Self Care Anticipated Discharge Timeframe: within 24 hours
[2020-10-05] MEDS: ENOXAPARIN SODIUM INJ 40 MG/0.4 ML DISP.SYRIN SUBCUT SCH (12:21)
[2020-10-05] MEDS: ASPIRIN 81 MG TABLET, CHEWABLE PO SCH (12:21)
[2020-10-05] MEDS: FAMOTIDINE 20 MG TABLET PO SCH ×2 (12:22→21:25)
[2020-10-05 14:21] LABS: ANION GAP 10 (5-19); BLOOD UREA NITROGEN 10 mg/dL (7-20); CALCIUM 9.2 mg/dL (8.4-10.2); CARBON DIOXIDE 24 mmol/L (22-30); CHLORIDE 91 mmol/L (98-107); GLUCOSE 128 mg/dL (75-110); POTASSIUM 3.9 mmol/L (3.6-5.0)
--- NOTE | 2020-10-05 20:31 | EKG REPORT ---
SEVERITY:- NORMAL ECG - SINUS RHYTHM : Confirmed by: Teri Herndon MD 05-Oct-2020 20:30:40
[2020-10-05 21:41] LABS: ANION GAP 6 (5-19); BLOOD UREA NITROGEN 11 mg/dL (7-20); CALCIUM 8.6 mg/dL (8.4-10.2); CARBON DIOXIDE 27 mmol/L (22-30); CHLORIDE 93 mmol/L (98-107); GLUCOSE 101 mg/dL (75-110); POTASSIUM 3.8 mmol/L (3.6-5.0)
[2020-10-05] MEDS ORDERED: ATORVASTATIN CALCIUM 40 MG TABLET PO SCH (22:00)
[2020-10-06 07:09] LABS: ANION GAP 5 (5-19); BLOOD UREA NITROGEN 9 mg/dL (7-20); CALCIUM 8.7 mg/dL (8.4-10.2); CARBON DIOXIDE 25 mmol/L (22-30); CHLORIDE 99 mmol/L (98-107); GLUCOSE 89 mg/dL (75-110); POTASSIUM 4.2 mmol/L (3.6-5.0)
[2020-10-06] MEDS: FAMOTIDINE 20 MG TABLET PO SCH (09:21)
[2020-10-06] MEDS: ENOXAPARIN SODIUM INJ 40 MG/0.4 ML DISP.SYRIN SUBCUT SCH (09:21)
[2020-10-06] MEDS: ASPIRIN 81 MG TABLET, CHEWABLE PO SCH (09:21)
[2020-10-06] MEDS ORDERED: LISINOPRIL 10 MG TABLET PO SCH (10:00)
[2020-10-06 14:17] VITALS: BP 119/48
[2020-10-06 17:55] LABS: ANION GAP 6 (5-19); BLOOD UREA NITROGEN 9 mg/dL (7-20); CALCIUM 8.5 mg/dL (8.4-10.2); CARBON DIOXIDE 26 mmol/L (22-30); CHLORIDE 98 mmol/L (98-107); GLUCOSE 135 mg/dL (75-110); POTASSIUM 3.8 mmol/L (3.6-5.0)
[2020-10-06] MEDS ORDERED: SODIUM BICARBONATE 650 MG TABLET PO SCH (18:30)
--- NOTE | 2020-10-07 12:03 | Left Against Medical Advice ---
Against Medical Advice Admission Date/Time: 10/04/20 23:00 Primary Care Provider: JOSE BURNHAM PA-C Date of Patient Emigration: 10/06/20 - Diagnosis: (1) Hyponatremia Is this a current diagnosis for this admission?: Yes (2) Syncope and collapse Is this a current diagnosis for this admission?: Yes (3) COPD (chronic obstructive pulmonary disease) Is this a current diagnosis for this admission?: Yes (4) Head injury without fracture of skull Is this a current diagnosis for this admission?: Yes (5) Hypertension Is this a current diagnosis for this admission?: Yes (6) Atypical chest pain Is this a current diagnosis for this admission?: Yes - Summary: Summary: As per admitting physician's note BRAIN SCHULER is a 74 year old female with a history of hypertension and COPD who presents to the ED after she sustained a fall 1 day prior to presentation. She states that she fell down while she was trying to go to the bathroom. During the incident she hit her head and she thinks that she might have blacked out for few minutes but does not remember exactly for how long. Patient had similar episodes about 2 weeks back. He denied any shortness of breath, dizziness chest pain or palpitation prior to or during the fall. Currently he reports constant nonspecific bilateral chest pain with no clear aggravating or relieving factor. Patient also reports that this she has been feeling generally weak for the past 2 weeks and has generalized body pain fatigue lower back and multiple joints. Patient is alert and oriented x3 but at times appears to be confused. He denies any nausea, vomiting, fever, chills, cough, diarrhea, abnormal body movement. She reports some numbness on the left lower extremity but denies any weakness of extremities. At the ED patient was hemodynamically stable labs showed hyponatremia of [address] without contrast was negative, cervical spine CT showed grade 1 anterolisthesis at C4/C5 level. X-ray showed hyperinflated lungs consistent with COPD but no acute changes were noted. (1) Hyponatremia Much improved but unfortunately patient decided to leave AMA. 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 Patient reports drinking excessive amount of water daily. Normal urine sodium, low serum osmolarity and low urine osmolarity. Denies any history of malignancy, denies any history of tobacco abuse, not taking any SSRIs or antiepileptics. Presented with sodium of 117. Currently sodium is 124. DC IV fluids. Fluid restriction. BMP every 8 hours. Implement seizure and fall precautions. (2) Syncope and collapse Patient presents after an episode of syncope with fall and head injury CT head without contrast was negative for skull fracture or any acute intracranial abnormality Likely orthostatic due to volume depletion Continue IV hydration Continue monitoring on telemetry consider echocardiogram On fall precaution (3) COPD (chronic obstructive pulmonary disease) Currently not in acute exacerbation Continue present treatment with DuoNeb's every 4 hourly as needed (4) Head injury without fracture of skull Patient sustained head injury during an episode of fall Physical exam was significant for a 3 cm linear laceration around the occipital area CT head without contrast showed no skull fracture or acute intracranial findings Continue wound care, fall precaution (5) Hypertension Euvolemic. Normotensive. Home medications are lisinopril and HCTZ. DC HCTZ due to electrolyte abnormalities. Resume lisinopril adjust dosage as needed. Outpatient PCP follow-up. (6) Atypical chest pain Resolved. Denies any history of CAD. Likely musculoskeletal, does not appear to be cardiac. Troponins negative x3. EKG no acute changes. Continue monitoring on telemetry, aspirin and statins optimize BP.
== END 2020-10-06 18:54 | disposition left against medical advice (07) | DRG 641 ==
LOC: ER 16:00 → EH 23:00 → 3W 10-05 01:11
PROVIDERS: ADMIT Student in an Organized Health Care Education/Training Program; ATTEND Internal Medicine
PROC: 3E0234Z Introduction of Serum, Toxoid and Vaccine into Muscle, Percutaneous Approach (ICD-10-PCS; principal; 2020-10-04)
DX: E87.1 Hypo-osmolality and hyponatremia (principal); R55 Syncope and collapse; S09.90XA Unspecified injury of head, initial encounter; S00.212A Abrasion of left eyelid and periocular area, initial encounter; R07.89 Other chest pain; J44.9 Chronic obstructive pulmonary disease, unspecified; I10 Essential (primary) hypertension; W19.XXXA Unspecified fall, initial encounter; E78.5 Hyperlipidemia, unspecified; Y92.009 Unspecified place in unspecified non-institutional (private) residence as the place of occurrence of the external cause; Z87.891 Personal history of nicotine dependence; Z90.49 Acquired absence of other specified parts of digestive tract; Z98.49 Cataract extraction status, unspecified eye; Z79.899 Other long term (current) drug therapy; Z23 Encounter for immunization
CPT/HCPCS: 36415; 70450; 71045; 72125; 80048; 80053; 81001; 83735; 83880; 83930; 83935; 84300; 84443; 84484; 85025; 90471; 90715; 93005; 93010; 94640; 96361; 96374; 96375; 99285; J1650; J2270; J2405; J2930; J7030; J7120

== ENCOUNTER 2020-10-08 11:43 | Emergency (ER) | payer MEDICARE ==
--- NOTE | 2020-10-08 12:13 | ER Document Report ---
ED Medical Screen (RME) - General Chief Complaint: Abnormal Lab Results Stated Complaint: ABNORMAL LABS Time Seen by Provider: 10/08/20 12:05 Primary Care Provider: JOSE BURNHAM PA-C [Primary Care Provider] - Follow up as needed Notes: Patient is a 74-year-old female who presents emergency department with a chief complaint of abnormal labs. Patient was admitted to the hospital a few days ago and left AMA. Family member states that the patient has been having confusion issues, did complain of chest tightness that started this morning, and some shortness of breath. Patient was brought in for another evaluation. - Related Data Allergies/Adverse Reactions: No Known Allergies Allergy (Unverified 10/04/20 16:27) Past Medical History - Social History Frequency of alcohol use: None Drug Abuse: None - Past Medical History Cardiac Medical History: Reports: Hx Hypercholesterolemia, Hx Hypertension Pulmonary Medical History: Reports: Hx COPD Psychiatric Medical History: Denies: Hx Depression Past Surgical History: Reports: Hx Cholecystectomy, Hx Tubal Ligation, Other - Cataract surgery Physical Exam - Vital signs Vitals: Temp Pulse Resp BP Pulse Ox 97.7 F 73 16 215/106 H 100 10/08/20 11:51 10/08/20 11:51 10/08/20 11:51 10/08/20 11:51 10/08/20 11:51 - Respiratory Respiratory status: No respiratory distress Breath sounds: Normal Chest palpation: Normal Course - Re-evaluation Re-evalutation: 10/08/20 12:12 Will obtain basic labs, EKG and chest x-ray as well as cardiac enzymes to start. I have greeted and performed a rapid initial assessment of this patient. A comprehensive ED assessment and evaluation of the patient, analysis of test results and completion of the medical decision making process will be conducted by additional ED providers. Patient is noted to be hypertensive in triage. - Vital Signs Vital signs: Temp Pulse Resp BP Pulse Ox 97.7 F 73 16 215/106 H 100 10/08/20 11:51 10/08/20 11:51 10/08/20 11:51 10/08/20 11:51 10/08/20 11:51 Doctor's Discharge - Discharge Referrals: JOSE BURNHAM PA-C [Primary Care Provider] - Follow up as needed
--- NOTE | 2020-10-08 12:27 | EKG REPORT ---
SEVERITY:- ABNORMAL ECG - SINUS RHYTHM PROBABLE LEFT ATRIAL ABNORMALITY NONSPECIFIC T ABNORMALITIES, LATERAL LEADS OLD ANTEROSEPTAL UT : Confirmed by: Rigoberto Ordonez MD 08-Oct-2020 12:26:32
--- NOTE | 2020-10-08 12:43 | RADIOLOGY REPORT (SQ) ---
EXAM DESCRIPTION: CHEST 2 VIEWS IMAGES COMPLETED DATE/TIME: 10/08/2020 12:34 pm REASON FOR STUDY: chest tightness, shortness of breath COMPARISON: 10/04/2020 EXAM PARAMETERS: NUMBER OF VIEWS: two views TECHNIQUE: Digital Frontal and Lateral radiographic views of the chest acquired. RADIATION DOSE: NA LIMITATIONS: none FINDINGS: LUNGS AND PLEURA: Mild hyperexpansion of the lungs. No infiltrate, effusion, or mass. MEDIASTINUM AND HILAR STRUCTURES: No masses or contour abnormalities. HEART AND VASCULAR STRUCTURES: Heart normal size. No evidence for failure. BONES: No acute findings. HARDWARE: None in the chest. OTHER: No other significant finding. IMPRESSION: Mild chronic lung changes with no acute cardiopulmonary findings. TECHNICAL DOCUMENTATION: JOB ID: [id number] 2010 [employer]- All Rights Reserved Reading location - IP/workstation name: [email or web address]
[2020-10-08 12:50] LABS: ABSOLUTE BASOPHILS # (AUTO) 0.1 10^3/uL (0.0-0.2); ABSOLUTE EOSINOPHILS # (AUTO) 0.2 10^3/uL (0.0-0.6); ABSOLUTE MONOCYTES (AUTO) 0.7 10^3/uL (0.1-1.4); ABSOLUTE NEUT (AUTO) 7.7 10^3/uL (1.7-8.2); BASOPHILS % (AUTO) 0.8 % (0-2); EOSINOPHILS % (AUTO) 1.6 % (0-6); HEMATOCRIT 36.9 % (36.0-47.0); HEMOGLOBIN 12.8 g/dL (12.0-15.5); LYMPHOCYTES % (AUTO) 10.3 % (13-45); MEAN CORPUSCULAR HEMOGLOBIN 30.7 pg (27.0-33.4); MEAN CORPUSCULAR HGB CONC 34.7 g/dL (32.0-36.0); MEAN CORPUSCULAR VOLUME 89 fl (80-97); MONOCYTES % (AUTO) 6.8 % (3-13); PLATELET COUNT 295 10^3/uL (150-450); RED BLOOD COUNT 4.16 10^6/uL (3.72-5.28); RED CELL DISTRIBUTION WIDTH 14.1 % (11.5-14.0); SEGMENTED NEUTROPHILS % (AUTO) 80.5 % (42-78); TOTAL CELLS COUNTED % (AUTO) 100 %; WHITE BLOOD COUNT 9.5 10^3/uL (4.0-10.5)
[2020-10-08 12:54] LABS: APPEARANCE,URINE CLEAR; BILIRUBIN,URINE NEGATIVE (NEGATIVE); COLOR,URINE STRAW; GLUCOSE, URINE NEGATIVE (NEGATIVE); KETONES,URINE NEGATIVE (NEGATIVE); LEUKOCYTE ESTERASE,URINE NEGATIVE (NEGATIVE); NITRITE,URINE NEGATIVE (NEGATIVE); PROTEIN,URINE NEGATIVE (NEGATIVE); URINE SPECIFIC GRAVITY 1.004; UROBILINOGEN,URINE NEGATIVE mg/dL (<2.0)
[2020-10-08 13:11] LABS: ALBUMIN 4.3 g/dL (3.5-5.0); ALKALINE PHOSPHATASE 77 U/L (38-126); ANION GAP 7 (5-19); ASPARTATE AMINO TRANSFERASE 43 U/L (14-36); BILIRUBIN,DIRECT 0.1 mg/dL (0.0-0.4); BILIRUBIN,TOTAL 0.4 mg/dL (0.2-1.3); BLOOD UREA NITROGEN 7 mg/dL (7-20); CALCIUM 9.4 mg/dL (8.4-10.2); CARBON DIOXIDE 28 mmol/L (22-30); CHLORIDE 100 mmol/L (98-107); GLUCOSE 98 mg/dL (75-110); POTASSIUM 4.6 mmol/L (3.6-5.0); TOTAL PROTEIN 7.1 g/dL (6.3-8.2)
--- NOTE | 2020-10-08 13:27 | ER Document Report ---
ED General - General Chief Complaint: Abnormal Lab Results Stated Complaint: ABNORMAL LABS Time Seen by Provider: 10/08/20 12:05 Primary Care Provider: JOSE BURNHAM PA-C [Primary Care Provider] - Follow up as needed - [facility] Notes: Patient is a 74-year-old female with a past medical history of hypertension and high cholesterol who presents for a lab recheck. Patient was admitted to the hospital on October 04 for hyponatremia and encephalopathy. This was attributed to polydipsia and HCTZ. Her blood pressure medication was changed to lisinopril. Patient left AMA on October 06. She said that she needed to go home to her dogs. Patient went to follow-up with her PCP today. She mentioned that she has been having chest tightness and needed her sodium rechecked and the PCP sent her here. From record review, patient has been complaining of chest tightness since she was admitted. She had 3 negative troponins at that time and it was attributed to musculoskeletal pain. Patient is unsure when she developed this chest pain. Her son is in the room and states she did not complain of it last night but did complain of it this morning. She describes it as tightness and burning. Currently, she denies any chest pain. Patient denies any headaches or lightheadedness. No cough or cold. No fevers or chills. No nausea, vomiting, diarrhea, abdominal pain. Her son states that she has been having several weeks of memory issues. Patient is unsure if she took her medicine twice today or not. She does live alone. She had a CAT scan several days ago that was nonacute. - Related Data Allergies/Adverse Reactions: No Known Allergies Allergy (Unverified 10/04/20 16:27) Past Medical History - General Information source: Patient, Relative - Social History Smoking Status: Former Smoker Frequency of alcohol use: None Drug Abuse: None Family History: Reviewed & Not Pertinent - Past Medical History Cardiac Medical History: Reports: Hx Hypercholesterolemia, Hx Hypertension Pulmonary Medical History: Reports: Hx COPD Psychiatric Medical History: Denies: Hx Depression Past Surgical History: Reports: Hx Cholecystectomy, Hx Tubal Ligation, Other - Cataract surgery Review of Systems - Review of Systems Notes: CONSTITUTIONAL: No fever, fatigue or weight loss. SKIN: No rash. HENT: No congestion, ear pain, or sore throat. CARDIOVASCULAR: No chest pain or edema. RESPIRATORY: No cough, shortness of breath, congestion, or wheezing. Positive for chest tightness, resolved. GASTROINTESTINAL: No abdominal pain, nausea, vomiting, bloody stools or diarrhea. GENITOURINARY: No dysuria. MUSCULOSKELETAL: No joint pain or swelling. LYMPHATIC: No swollen glands. NEUROLOGIC: No seizures. No headache, focal weakness or sensory changes. Positive for ongoing memory issues. HEMATOLOGIC: No unusual bruising or bleeding. PSYCHIATRIC: No depression or anxiety. Physical Exam - Vital signs Vitals: Temp Pulse Resp BP Pulse Ox 97.7 F 73 16 215/106 H 100 10/08/20 11:51 10/08/20 11:51 10/08/20 11:51 10/08/20 11:51 10/08/20 11:51 - General General appearance: Appears well Notes: VITAL SIGNS: Within normal limits. GENERAL: No acute distress, non-toxic appearance. HEAD: Healing ecchymosis to left face from previous fall. EYES: Conjunctiva normal, no discharge. EARS: Hearing grossly intact. NOSE: Normal. NECK: Normal range of motion, no tenderness, supple, no lymphadenopathy, No adenopathy, no JVD. CHEST: Clear breath sounds bilaterally. No wheezes, rales, or rhonchi. CARDIAC: Regular rate and rhythm. S1 and S2, without murmurs, gallops, or rubs. VASCULAR: No Edema. ABDOMEN: Normal and soft with no tenderness, no masses or pulsatile masses. MUSCULOSKELETAL: Good range of motion of all major joints. Extremities without clubbing, cyanosis or edema. NEUROLOGICAL: Alert and oriented. No focal sensory or strength deficits. Speech normal. Follows commands appropriately. PSYCHIATRIC: Normal Affect, judgement and mood. SKIN: Normal appearance with no rashes or lesions. Course - Re-evaluation Re-evalutation: 10/08/20 13:27 Patient sodium is essentially normal today. I will obtain a cardiac work-up. I discussed with the hospitalist, Dr. Sosa, as he was taking care of her when she left A. He stated that he attributed her memory issues to a concussion. He did recommend that I could order the MRI and if that is nonacute, she can be discharged with PCP follow-up. I explained all this to the patient and her son. They are very agreeable. Patient's MRI was normal. She states that she is not currently having any chest tightness. She had 2 - troponins and a normal EKG. I believe patient can be discharged to follow-up with her PCP and he can evaluate her memory issues and possibly do a dementia screen. Patient son stated that he will be staying with her at home so she will not be alone. They were given strict return precautions. 10/08/20 19:43 10/08/20 19:45 - Vital Signs Vital signs: Temp Pulse Resp BP Pulse Ox 98.4 F 73 27 H 178/76 H 97 10/08/20 16:28 10/08/20 11:51 10/08/20 16:27 10/08/20 16:28 10/08/20 16:28 - Laboratory Results Result Diagrams: 10/08/20 12:20 10/08/20 12:20 Laboratory Results Interpreted: 10/08/20 10/08/20 12:20 12:20 RDW 14.1 H Lymph % (Auto) 10.3 L Seg Neutrophils % 80.5 H Sodium 134.6 L Est GFR (MDRD) Non-Af 58 L AST 43 H Critical Laboratory Results Reviewed: No Critical Results - Radiology Results Critical Radiology Results Reviewed: No Critical Results - EKG Interpretation by [facility] EKG shows normal: Sinus rhythm Rate: Normal When compared to previous EKG there are: No significant change Additional EKG results interpreted by me: 10/08/20 13:29 Sinus rhythm at a rate of 75. QTc 416. No acute ST changes. EKG is similar to previous. Discharge - Discharge Clinical Impression: Memory changes, Chest tightness Condition: Stable Disposition: HOME, SELF-CARE Instructions: Chest Pain of Unclear Cause ([facility]) Additional Instructions: Your work-up today is reassuring. Your MRI was read as normal by the radiologist. Please follow-up with your family doctor. Return to the ER for any vomiting, nausea, lightheadedness, headaches, worsening symptoms. Referrals: JOSE BURNHAM PA-C [Primary Care Provider] - Follow up as needed
--- NOTE | 2020-10-08 15:14 | RADIOLOGY REPORT (SQ) ---
EXAM DESCRIPTION: MRI HEAD WITHOUT IMAGES COMPLETED DATE/TIME: 10/08/2020 2:59 pm REASON FOR STUDY: confusion, previous fall COMPARISON: CT dated 10/04/2020. TECHNIQUE: Multiplanar imaging includes non-contrasted T1, T2, FLAIR, and diffusion with ADC map seq uences. Images stored on PACS. LIMITATIONS: None. FINDINGS: ANATOMY: No anomalies. Normal vascular flow voids. Pituitary fossa normal. CSF SPACES: Normal in size and contour. No hemorrhage. CEREBRUM: Sulci and gyri normal in size and contour. Normal white matter signal on FLAIR imaging. No evidence of hemorrhage, mass, or extraaxial fluid collection. POSTERIOR FOSSA: No signal alteration. No hemorrhage. No edema, masses or mass effect. Internal eda tory canals, cerebello-pontine angles, mastoids normal. DIFFUSION IMAGING: Negative for acute or sub-acute infarction. ORBITS: No masses. Globes normal. PARANASAL SINUSES: No fluid levels. Mucosa normal. OTHER: No other significant finding. IMPRESSION: NORMAL MRI OF THE BRAIN WITHOUT INTRAVENOUS GADOLINIUM CONTRAST. EVIDENCE OF ACUTE STROKE: NO. TECHNICAL DOCUMENTATION: JOB ID: [id number] [email or web address]- All Rights Reserved Reading location - IP/workstation name: [email or web address]
[2020-10-08] MEDS ORDERED: ASPIRIN 325 MG TABLET PO ONE (16:18)
[2020-10-08 16:43] VITALS: BP 178/76
== END 2020-10-08 16:48 | disposition home or self-care (01) ==
LOC: ER 11:43
DX: R07.89 Other chest pain (principal); R41.3 Other amnesia; I10 Essential (primary) hypertension; J44.9 Chronic obstructive pulmonary disease, unspecified; Z87.891 Personal history of nicotine dependence; Z91.81 History of falling
CPT/HCPCS: 93005; 99285; 36415; 85025; 80053; 81001; 84484; 70551; 71046; 93010; A9270